=== PATIENT | female | born 1995 | race American Indian/Alaskan Native ===

== ENCOUNTER 2021-06-17 07:57 | Inpatient (IN) | payer MEDICAID ==
[2021-06-17] MEDS ORDERED: LACTATED RINGERS 1,000 ML IV ONE (09:00)
[2021-06-17] MEDS ORDERED: ONDANSETRON 4 MG/2 ML INJ IV SCH (09:00)
[2021-06-17 09:10] LABS: Amorphous Crystals,Urine 1+; Bilirubin,Urine NEG (Negative); Blood,Urine NEG (Negative); Color,Urine Yellow (Yellow); Mucus,Urine 2+ /HPF; Urobilinogen,Urine < 2.0 mg/dL (<2.0)
[2021-06-17 09:17] LABS: Basophils % (Auto) 0.2 % (0.0-1.8); Eosinophils % (Auto) 0.2 % (0.0-4.3); Hematocrit 33.4 % (30.3-42.9); Hemoglobin 11.7 gm/dl (10.1-14.3); Lymphocytes # (Auto) 0.7 K/mm3 (1.2-5.4); Lymphocytes % (Auto) 8.1 % (13.4-35.0); Mean Corpuscular HGB Conc 35 % (30-34); Mean Corpuscular Volume 89 fl (79-97); Monocytes # (Auto) 0.5 K/mm3 (0.0-0.8); Monocytes % (Auto) 6.1 % (0.0-7.3); Platelet Count 197 K/mm3 (140-440); Red Blood Count 3.77 M/mm3 (3.65-5.03); Red Cell Distribution Width 13.2 % (13.2-15.2)
[2021-06-17 09:40] LABS: Alanine Aminotransferase 12 units/L (7-56); Blood Urea Nitrogen 8 mg/dL (7-17); Hemolysis Index 8
[2021-06-17 09:41] LABS: BUN/Creatinine Ratio 27
[2021-06-17 12:54] LABS: Amphetamine Screen,Urine Negative; Benzodiazepines Screen,Urine Negative; Cannabinoid Screen,Urine Negative; Cocaine Screen,Urine Negative; Methadone Screen,Urine Negative; Opiate Screen,Urine Negative
[2021-06-17] MEDS ORDERED: ACETAMINOPHEN 325 MG TAB PO PRN (13:39)
[2021-06-17] MEDS ORDERED: fentaNYL 100 MCG/2 ML INJ IV PRN (13:39)
[2021-06-17] MEDS ORDERED: NalbUPHINE 10 MG/1 ML INJ IV PRN (13:39)
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
[2021-06-17] MEDS ORDERED: ONDANSETRON 4 MG/2 ML INJ IV PRN (14:00)
[2021-06-17] MEDS ORDERED: PROMETHAZINE 25 MG RECT SUPP PR PRN (14:00)
[2021-06-17] MEDS ORDERED: ALBUTEROL 8.5 GM MDI INHALATION IH PRN (14:14)
--- NOTE | 2021-06-17 15:29 | Ultrasound Report ---
ULTRASOUND ABDOMEN, COMPLETE INDICATION / CLINICAL INFORMATION: abdomen and renal ultrasound. COMPARISON: None available. FINDINGS: PANCREAS: No significant abnormality. ABDOMINAL AORTA: No significant abnormality. IVC: No significant abnormality. LIVER: No significant abnormality. The liver measures 13.8 cm. The main portal vein is patent. GALLBLADDER: No significant abnormality. BILE DUCTS: No significant abnormality. Common bile duct measures 3 mm. KIDNEYS: Right: No significant abnormality. Left: No significant abnormality. SPLEEN: No significant abnormality. FREE FLUID: None. ADDITIONAL FINDINGS: Gravid uterus. IMPRESSION: 1. No significant sonographic abnormality of the abdomen. 2. Gravid uterus. Signer Name: Mario Graves MD Signed: 06/17/2021 3:19 PM Workstation Name: [id number]
--- NOTE | 2021-06-17 15:32 | Ultrasound Report ---
US OB follow up INDICATION: no prental care, need gestational age, hyperemesis. TECHNIQUE: Transabdominal. COMPARISON: None available. FINDINGS: There is a single intrauterine . Biparietal Diameter = 5.1 cm Head Circumference = 19.9 cm Abdominal Circumference = 17.6 cm Femur Length = 4 cm Heart Rate: 148 beats per minute. Estimated Weight in grams (if calculated): 509 g Position: cephalic. Cervix: closed. Length in cm (if measured): 2.7 cm Placenta: anterior, grade 0, and free of the os. Amniotic Fluid Volume: normal IMPRESSION: 1. Single, living intrauterine with estimated sonographic age of 22 weeks, 1 day(s). 2. Shortened cervix measuring 2.7 cm and possible funneling. Signer Name: Bravo Atkins MD Signed: 06/17/2021 3:26 PM Workstation Name: [id number]
[2021-06-17] MEDS: PANTOPRAZOLE 40 MG INJ IV SCH (15:42)
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
--- NOTE | 2021-06-17 21:24 | Event Note ---
Date: 06/17/21 CC: HD #1 N/V of HPI: 26-year-old at 21 weeks gestation is hospitalized for management of nausea and vomiting of . There is no vaginal bleeding. There is no leakage of fluid. There are no contractions. There is a good movement. The patient was unable to keep food down at home despite taking oral Zofran and oral Phenergan. In the hospital the patient was prescribed Phenergan rectal suppositories as needed nausea and vomiting. The patient reports improvement with her nausea this evening. She was given a p.o. challenge. However, while the patient tolerated Jell-O and [place] cake, she vomited when drinking milk. Maternal- medicine was consulted because OB ultrasound (transabdominal) was concerning for cervical shortening and possible funneling. As such, transvaginal pelvic ultrasound was ordered to evaluate cervical length. O: FMD=[id number] TOCO= none SVE= closed LABS: CBC and CMP were reviewed. UA= no ketones RADIOLOGY: OB transvaginal ultrasound= cervical length is 5.0 cm long. There is questionable funneling measuring 0.8 cm. IMPRESSION: 1.) 21 weeks 2.) N/V of 3.) Asthma, mild-intermittent 4.) R/O cervical insufficiency PLAN: 1.) Despite Phenergan rectal suppositories as needed nausea and vomiting, the patient did not tolerate a p.o. challenge well. 2.) Change dosing of Phenergan rectal suppositories to every 6 hours scheduled. 3.) Add Zofran 4 mg IV every 8 hours scheduled. 4.) Add 0.9 normal saline with 20 milliequivalents KCl at 100 mL/h. 5.) Once patient is able to tolerate solid food, consider discharge home with Phenergan rectal suppositories and setting up a Zofran pump through [facility] ([phone]). Social work service was consulted to assist with this. 6.) The patient reports that she already has an appointment to see [facility] as an outpatient. 7.) Based on the cervical length of 5.0 cm on transvaginal ultrasound, I do not believe that this patient is in labor.
[2021-06-17] MEDS ORDERED: PROMETHAZINE 25 MG RECT SUPP PR STA (22:04)
--- NOTE | 2021-06-17 22:37 | Ultrasound Report ---
ULTRASOUND OBSTETRIC LIMITED INDICATION / CLINICAL INFORMATION: cervical length with abd view showing funneling. TECHNIQUE: Transabdominal. COMPARISON: None available. FINDINGS: Cervix appears closed and measures 5.0 cm. There is questionable cervical funneling noted measuring 0 .8 cm. PRESENTATION: Cephalic. ADDITIONAL FINDINGS: None. IMPRESSION: 1. Cervix appears closed and measures 5 cm. 2. Questionable cervical funneling measuring 0.8 cm. Signer Name: Carlos Ricketts MD Signed: 06/17/2021 10:33 PM Workstation Name: [id number]
[2021-06-17] MEDS: ONDANSETRON 4 MG/2 ML INJ IV SCH (23:05)
[2021-06-17] MEDS: D5NS W/KCL 20 MEQ 20 MEQ/1,000 ML BAG IV SCH (23:05)
[2021-06-18] MEDS: ONDANSETRON 4 MG/2 ML INJ IV SCH (06:46)
[2021-06-18] MEDS ORDERED: METOCLOPRAMIDE 10 MG TAB PO PRN (11:00)
[2021-06-18] MEDS: PANTOPRAZOLE 40 MG INJ IV SCH (11:48)
[2021-06-18] MEDS: D5NS W/KCL 20 MEQ 20 MEQ/1,000 ML BAG IV SCH ×2 (13:48→23:35)
--- NOTE | 2021-06-18 14:44 | Progress Note ---
Assessment and Plan A Hyperemesis Gravidarum @ 21 1/7 weeks Possible cervical insufficiency - funneling of the cervix P Will d/c IV Zofran and rectal phenergan Will start po reglan If no relieved with po reglan will proceed with IV pump. F/u with [facility] for possible cervical insufficiency. . Subjective - Subjective Date of service: 06/18/21 Principal diagnosis: Hyperemesis Gravidarum Interval history: Pt. diagnosed with HEG@ 21 weeks. Pt. currently receiving IV Zofran and rectal phenergan Patient reports: appetite normal (Pt. with mild nausea. Tolerating regular diet. Abdominal cramping resolved) Objective - Vital Signs Latest vital signs: Vital Signs Temp Pulse Resp BP BP Pulse Ox 06/18/21 09:33 72 101/50 06/18/21 09:32 98.3 F 72 101/50 06/18/21 06:05 70 99 06/18/21 06:00 84 98 06/18/21 05:55 83 97 06/18/21 05:51 96 H 94 06/18/21 05:50 86 98 06/18/21 05:45 83 98 06/18/21 05:43 91 H 93 06/18/21 05:40 85 98 06/18/21 05:35 78 99 06/18/21 05:30 74 98 06/18/21 05:25 86 97 06/18/21 05:20 79 98 06/18/21 05:15 78 98 06/18/21 05:10 72 97 06/18/21 05:05 78 98 06/18/21 05:00 82 98 06/18/21 04:55 77 98 06/18/21 04:50 76 98 06/18/21 04:45 71 98 06/18/21 04:40 81 98 06/18/21 04:35 85 98 06/18/21 04:30 90 99 06/18/21 04:25 82 98 06/18/21 04:20 90 98 06/18/21 04:15 85 99 06/18/21 04:10 90 98 06/18/21 04:05 80 97 06/18/21 04:00 98.2 F 78 18 99/51 99/51 98 06/18/21 03:58 84 93 06/17/21 21:59 75 98 06/17/21 21:54 90 98 06/17/21 21:49 90 98 06/17/21 21:44 81 99 06/17/21 21:39 98 H 99 06/17/21 21:34 85 97 06/17/21 21:29 86 99 06/17/21 21:24 85 99 06/17/21 21:23 86 78 L 06/17/21 21:19 85 97 06/17/21 21:14 76 99 06/17/21 21:09 87 98 06/17/21 21:04 82 99 06/17/21 20:59 100 H 99 06/17/21 20:54 100 H 100 06/17/21 20:42 18 06/17/21 20:41 74 98 06/17/21 20:36 88 98 06/17/21 20:31 84 98 06/17/21 20:26 85 96 06/17/21 20:21 82 97 06/17/21 20:16 80 98 06/17/21 20:11 90 98 06/17/21 20:06 84 100 06/17/21 20:01 102 H 99 06/17/21 19:56 84 100 06/17/21 19:51 83 100 06/17/21 19:46 85 99 06/17/21 19:41 90 99 06/17/21 19:36 85 98 06/17/21 19:35 99.1 F 85 18 106/52 106/52 98 Intake and Output 06/17/21 06/18/21 06/18/21 23:59 07:59 15:59 Intake Total 1000 Balance 1000 Intake: IV 1000 D5W/NS W/KCL 20MEQ 20 meq 1000 In 1,000 ml @ 100 mls/hr IV DIRECT [facility] Rx#: [id number] Other: # Voids Void 1 1 - Exam Lungs: Present: Clear to auscultation Abdomen: Present: normal appearance Uterus: Present: normal Extremities: Present: normal
[2021-06-18] MEDS: METOCLOPRAMIDE 10 MG TAB PO SCH ×2 (15:52→22:04)
[2021-06-19] MEDS: METOCLOPRAMIDE 10 MG TAB PO SCH ×2 (04:00→10:41)
[2021-06-19] MEDS: PANTOPRAZOLE 40 MG INJ IV SCH (10:42)
--- NOTE | 2021-06-19 11:07 | Progress Note ---
Assessment and Plan A: IUP @ 21 2/7 Weeks Hyperemsis P: Continue PO Reglan as ordered Continue Regular Diet [employer] Consult Re-requested due to Zofran Pump Has Initial OB appt scheduled with [facility] on 06/23/2021 Subjective - Subjective Date of service: 06/19/21 Principal diagnosis: Hyperemesis Gravidarum Patient reports: appetite normal, voiding normally, pain well controlled, flatus, ambulating normally, other (States Reglan PO is working well; last vomited yesterday morning. Tolerated Regluar Breakfast) Objective - Vital Signs Latest vital signs: Vital Signs Temp Pulse Resp BP BP Pulse Ox Pulse Ox 06/19/21 10:44 18 06/19/21 08:09 66 94/55 100 06/19/21 08:07 98.3 F 66 12 94/55 100 06/19/21 08:05 100 06/19/21 06:12 97.8 F 81 18 101/51 101/51 98 06/18/21 20:27 74 112/58 100 06/18/21 20:25 98.0 F 68 18 112/58 99 06/18/21 20:15 81 L 06/18/21 18:32 98.5 F 81 14 103/67 06/18/21 18:31 81 103/67 06/18/21 15:54 98.1 F 76 14 103/56 06/18/21 15:53 76 103/56 Intake and Output 06/18/21 06/19/21 06/19/21 22:59 06:59 14:59 Intake Total 978.333 Balance 978.333 Intake: IV 978.333 D5W/NS W/KCL 20MEQ 20 meq 978.333 In 1,000 ml @ 100 mls/hr IV DIRECT [facility] Rx#: [id number] - Exam Breasts: Present: normal Cardiovascular: Present: Regular rate Lungs: Present: Clear to auscultation, Normal air movement Abdomen: Present: normal appearance, soft, normal bowel sounds Uterus: Present: normal, firm, fundal height above umbilicus Extremities: Present: normal
[2021-06-19 14:03] VITALS: BP 101/50
== END 2021-06-19 14:30 | disposition home or self-care (01) | DRG 781 ==
LOC: TRG 07:57 → APU 07:59 → TRG 13:46 → LD 18:02
PROVIDERS: ADMIT Obstetrics & Gynecology; ATTEND Obstetrics & Gynecology
DX: O21.0 Mild hyperemesis gravidarum (principal); Z3A.21 21 weeks gestation of pregnancy; O99.512 Diseases of the respiratory system complicating pregnancy, second trimester; J45.909 Unspecified asthma, uncomplicated; Z20.822 Contact with and (suspected) exposure to COVID-19
CPT/HCPCS: 36415; 59025; 76700; 76816; 76817; 80053; 80307; 81001; 82150; 83690; 85025; 87086; G0378; J3480; C9113; J2405; J7120; U0003

== ENCOUNTER 2021-08-04 14:33 | Outpatient (CLI) | payer MEDICAID ==
[2021-08-04] MEDS ORDERED: LACTATED RINGERS 500 ML IV ONE (14:54)
[2021-08-04 15:14] VITALS: BP 107/54
[2021-08-04 17:14] LABS: Bacteria,Urine 1+ /HPF (Negative); Bilirubin,Urine NEG (Negative); Blood,Urine NEG (Negative); Calcium Oxalate Crystals,Urine 2+; Color,Urine Yellow (Yellow); Mucus,Urine 2+ /HPF; Protein,Urine <15 mg/dL mg/dL (Negative)
== END 2021-08-04 17:50 | disposition home or self-care (01) ==
LOC: TRG 14:33 → APU 14:33 → TRG 17:50
PROVIDERS: ATTEND Obstetrics & Gynecology
DX: O26.852 Spotting complicating pregnancy, second trimester (principal); Z3A.27 27 weeks gestation of pregnancy
CPT/HCPCS: 59025; 81001; 87086

== ENCOUNTER 2021-09-18 11:33 | Outpatient (CLI) | payer MEDICAID ==
[2021-09-18 12:23] VITALS: BP 99/57
[2021-09-18] MEDS ORDERED: ACETAMINOPHEN 500 MG TAB PO ONE (12:35)
[2021-09-18] MEDS ORDERED: ONDANSETRON 4 MG/2 ML INJ IV ONE (12:35)
[2021-09-18] MEDS ORDERED: LACTATED RINGERS 1,000 ML IV SCH (12:45)
== END 2021-09-18 15:40 | disposition home or self-care (01) ==
LOC: TRG 11:33 → APU 11:34 → TRG 15:40
PROVIDERS: ATTEND Obstetrics & Gynecology
DX: O62.9 Abnormality of forces of labor, unspecified (principal); O21.2 Late vomiting of pregnancy; O26.893 Other specified pregnancy related conditions, third trimester; R51.9 Headache, unspecified; Z3A.35 35 weeks gestation of pregnancy
CPT/HCPCS: 59025; 96361; 96365; J2405; J7120; 96360; 96374